=== PATIENT | female | born 1960 | race Caucasian/White ===

== ENCOUNTER 2017-01-03 11:07 | Outpatient (CLI) | payer MEDICAID ==
--- NOTE | 2017-01-03 13:29 | XRAY Report ---
COMPLETE CERVICAL SPINE WITH FLEXION AND EXTENSION: 01/03/2017 CLINICAL INDICATION: Degenerative disk disease, right shoulder pain. COMPARISON: 05/20/2015 FINDINGS: AP, lateral neutral, lateral flexion, lateral extension, oblique, odontoid views of the ce rvical spine were obtained. Degenerative disk and facet disease is again noted, with right worse eusebio n left osseous neural foraminal narrowing. There is no evidence of interval fracture or subluxation. No abnormal motion is seen on flexion or extension to suggest ligamentous laxity. Motion is limite d by degenerative changes. IMPRESSION: DEGENERATIVE DISK AND FACET DISEASE, WITH STABLE OSSEOUS NEURAL FORAMINAL NARROWING. NO EVIDENCE OF INTERVAL FRACTURE. JOB #: [id number] EXT JOB #:[id number]
--- NOTE | 2017-01-03 13:49 | XRAY Report ---
TWO-VIEW RIGHT SHOULDER: 01/03/2017 CLINICAL INDICATION: Pain. FINDINGS: Frontal and scapular Y views of the right shoulder demonstrate mild degenerative changes. There are calcifications in the expected location of the distal supraspinatus tendon, compatible wit h calcific tendinitis. There is no evidence of acute fracture or dislocation. IMPRESSION: DEGENERATIVE CHANGES, WITH LIKELY CALCIFIC TENDINITIS. JOB #: [id number] EXT JOB #:[id number]
== END 2017-01-03 11:08 | disposition home or self-care (01) ==
LOC: DI.S 11:07
PROVIDERS: ATTEND Nurse Practitioner Family
DX: M50.30 Other cervical disc degeneration, unspecified cervical region (principal); M19.011 Primary osteoarthritis, right shoulder; M47.892 Other spondylosis, cervical region; M75.31 Calcific tendinitis of right shoulder
CPT/HCPCS: 72052

== ENCOUNTER 2017-06-09 09:00 | Outpatient (CLI) | payer MEDICAID ==
--- NOTE | 2017-06-09 11:47 | XRAY Report ---
DATE OF SERVICE: 06/09/2017 THORACIC SPINE SERIES: 06/09/2017 COMPARISON: Rib series 12/09/2015. INDICATION: Thoracic back pain. TECHNIQUE: Two views of the thoracic spine. FINDINGS: There is mild to moderate lateral curvature of the thoracic spine. No evidence of acute fracture. No compression deformities. The pedicles appear intact. No appreciable degenerative changes in other regards apart from minimal lateral osteophytes. IMPRESSION: MINIMAL THORACIC SPONDYLOSIS. MILD TO MODERATE LATERAL CURVATURE. TD[facility] 06[facility]09/2017 12:16 [facility]
== END 2017-06-09 09:01 | disposition home or self-care (01) ==
LOC: DI.S 09:00
PROVIDERS: ATTEND Nurse Practitioner Family
DX: M47.894 Other spondylosis, thoracic region (principal); M41.84 Other forms of scoliosis, thoracic region
CPT/HCPCS: 72072

== ENCOUNTER 2018-03-24 11:09 | Emergency (ER) | payer MEDICAID, OTHER ==
--- NOTE | 2018-03-24 12:51 | ED Physician Documentation ---
History of Present Illness - Stated complaint Stated Complaint: LUMP ON NECK - Chief complaint Chief Complaint: General - History obtained from History obtained from: Patient - History of Present Illness Timing: Last night (She noticed a nontender lump in the left supraclavicular area last night. It is unclear how long it had been there. After she noted it she looked around for other swollen areas but did not find any. 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, Breast implants, Other HEENT: Tonsil/Adenoidectomy - Present Medications Home Medications: Ambulatory Orders Medication Instructions Recorded Confirmed Venlafaxine HCl [Effexor Xr] 150 mg PO DAILY 03/24/18 03/24/18 - Allergies Allergies/Adverse Reactions: Allergies Allergy/AdvReac Type Severity Reaction Status Date / Time No Known Drug Allergies Allergy Verified 03/24/18 11:31 - Social History Does the pt smoke?: No Smoking Status: Never smoker Does the pt drink ETOH?: Yes Does the pt have substance abuse?: No - Immunizations Immunizations are current?: Yes PD ED PE NORMAL - Vitals Vital signs reviewed: Yes - General General: Alert and oriented X 3, No acute distress - HEENT HEENT: PERRL, EOMI - Neck Neck: Supple, no meningeal sign, No bony TTP - Cardiac Cardiac: RRR, No murmur - Respiratory Respiratory: No respiratory distress, Clear bilaterally - Abdomen Abdomen: Non tender - Extremities Extremities: Other (In the right mid clavicle area supraclavicular area to medi al to that there is a very large firm lump measuring about 8 x 3 cm consistent with adenopathy.) - Neuro Neuro: Alert and oriented X 3, Normal speech Results - Vitals Vitals: Vital Signs - 24 hr 03/24/18 11:28 Temperature 36.5 C Heart Rate 66 Respiratory 18 Rate Blood Pressure 144/85 H O2 Saturation 99 Oxygen O2 Source Room air - Labs Labs: Laboratory Tests 03/24/18 03/24/18 03/24/18 12:57 12:57 12:57 WBC 4.8 RBC 4.60 Hgb 14.1 Hct 40.9 MCV 88.7 MCH 30.6 MCHC 34.4 RDW 13.6 Plt Count 256 MPV 6.7 L Neut # (Auto) 3.3 Lymph # (Auto) 1.2 L Boyle # (Auto) 0.2 Eos # (Auto) 0.1 Baso # (Auto) 0.0 Absolute Nucleated RBC 0.00 Nucleated RBC % 0.0 Sodium 142 Potassium 3.8 Chloride 105 Carbon Dioxide 29 Anion Gap 8.0 BUN 11 Creatinine 0.6 Estimated GFR (MDRD) 104 Glucose 107 H Calcium 9.4 Total Bilirubin 0.6 AST 21 ALT 14 Alkaline Phosphatase 59 Total Protein 7.3 Albumin 4.5 Globulin 2.8 Albumin/Globulin Ratio 1.6 Lipase 51 TSH 1.30 - Rads (name of study) 2v chest Radiology: EMP read contemporaneously (normal) Sono L neck Radiology: Prelim report reviewed (3 adjacent heterogenous enlarged abnormal lymph nodes.) PD MEDICAL DECISION MAKING - ED course ED course: 57-year-old woman who notes a large left supraclavicular lump which feels like abnormal adenopathy on exam which is confirmed on ultrasound. She will need a biopsy as an oupt. Departure - Departure Disposition: 01 Home, Self Care Clinical Impression: Lymph node enlargement Condition: Good Record reviewed to determine appropriate education?: Yes Follow-Up: Chevy Bender MD [Provider Admit Priv/Credential] - Comments: The lymph node in your neck is concerning for potential lymphoma. You absolutely need to have a biopsy of it. Call Dr. Bender's office listed above on Monday for an appointment. Return for new or worsening symptoms.
[2018-03-24 13:01] LABS: BASOPHILS % (AUTO) 0.8 %; EOSINOPHILS # (AUTO) 0.1 10^3/uL (0.0-0.7); EOSINOPHILS % (AUTO) 1.1 %; HGB - HEMOGLOBIN 14.1 g/dL (12.0-16.0); LYMPHOCYTES # (AUTO) 1.2 10^3/uL (1.5-3.5); LYMPHOCYTES % (AUTO) 23.9 %; MEAN CORPUSCULAR HEMOGLOBIN 30.6 pg (27.0-31.0); MEAN CORPUSCULAR HGB CONC 34.4 g/dL (32.0-36.0); MEAN CORPUSCULAR VOLUME 88.7 fL (81.0-99.0); MEAN PLATELET VOLUME 6.7 fL (7.9-10.8); MONOCYTES # (AUTO) 0.2 10^3/uL (0.0-1.0); MONOCYTES % (AUTO) 4.6 %; NEUTROPHILS # (AUTO) 3.3 10^3/uL (1.5-6.6); NEUTROPHILS % (AUTO) 69.6 %; PLT - PLATELET COUNT 256 10^3/uL (130-450); RED CELL DISTRIBUTION WIDTH 13.6 % (12.0-15.0); WHITE BLOOD COUNT 4.8 x10^3/uL (4.8-10.8)
[2018-03-24 13:17] LABS: ALBUMIN 4.5 g/dL (3.2-5.5); ALBUMIN/GLOBULIN RATIO 1.6 (1.0-2.2); BILIRUBIN,TOTAL 0.6 mg/dL (0.2-1.0); CALCIUM 9.4 mg/dL (8.5-10.3); CREATININE 0.6 mg/dL (0.4-1.0); TOTAL PROTEIN 7.3 g/dL (6.7-8.2)
--- NOTE | 2018-03-24 13:47 | Ultrasound Report ---
Reason: lg left supraclavicular node Procedure Date: 03/24/2018 Accession Number: [id number] / [id number] Procedure: US - Head or Neck Soft Tissue CPT Code: FULL RESULT: EXAM: NECK ULTRASOUND EXAM DATE: 03/24/2018 12:55 PM. CLINICAL HISTORY: Large left supraclavicular node/swelling. COMPARISON: None. TECHNIQUE: Real-time sonographic imaging was performed by the wellfield technician utilizing color-flow. Multiple footwear sales representative static images were saved for review. FINDINGS: Sonographic assessment of the area of concern in the left supraclavicular region demonstrates 3 adjacent or a single lobular heterogeneous mass with marked vascularity. In total size the lobular mass measures 5.4 x 1.9 cm and separately the rounded mass medially measuring 2.4 x 1.7 x 2.2 cm, with the central mass measuring 2.0 x 1.9 x 2.7 cm and the more lateral mass measuring 1.6 x 1.3 x 1.9 cm. Mild adjacent subcutaneous edema. A portion of the visualized portion of left lobe thyroid gland demonstrates at least 2 hypoechoic nodules incompletely visualized. IMPRESSION: 1. Left supraclavicular lobular mass most likely representing 3 adjacent heterogeneous enlarged abnormal lymph nodes rather than a single lobular lymph node. [facility]
--- NOTE | 2018-03-24 13:52 | XRAY Report ---
Reason: supraclavicular adenopathy, eval mediastinum Procedure Date: 03/24/2018 Accession Number: [id number] / [id number] Procedure: XR - Chest 2 View X-Ray CPT Code: 97399 FULL RESULT: EXAM: CHEST RADIOGRAPHY EXAM DATE: 03/24/2018 01:36 PM. CLINICAL HISTORY: Supraclavicular adenopathy, eval mediastinum. COMPARISON: None. TECHNIQUE: 2 views. FINDINGS: Lungs/Pleura: No focal opacities evident. No pleural effusion. No pneumothorax. Normal volumes. Mediastinum: Heart and mediastinal contours are unremarkable. The retrosternal space is unremarkable. IMPRESSION: Normal 2-view chest radiography. [facility]
[2018-03-24 14:12] VITALS: BP 155/96
== END 2018-03-24 14:12 | disposition home or self-care (01) ==
LOC: ED 11:09
DX: R59.0 Localized enlarged lymph nodes (principal)
CPT/HCPCS: 36415; 71046; 76536; 80053; 83690; 84443; 85025; 99283

== ENCOUNTER 2022-03-28 15:07 | Outpatient (CLI) | payer BC ==
--- NOTE | 2022-03-30 09:31 | Mammography Report ---
BILATERAL DIGITAL SCREENING MAMMOGRAM 3D/2D WITH AUGMENTATION: 03/28/2022 CLINICAL: Routine screening. Family history of breast cancer. Comparison is made to exams dated: 12/22/2011 mammogram and 08/25/2009 mammogram - [facility]. Both breasts are heterogeneously dense, which may obscure small masses (category c / 51-75% glandular tissue). Bilateral breast implants are stable and intact. No significant masses, calcifications, or other findings are seen in either breast. There has been no significant interval change. IMPRESSION: NEGATIVE There is no mammographic evidence of malignancy. A 1 year screening mammogram is recommended. This exam was interpreted at Station ID: [id number]. NOTE: For mammograms, a report in lay terms will be sent to the patient. Approximately 15% of breast malignancies will not be visualized mammographically. In the management of a palpable breast mass, a negative mammogram must not discourage biopsy of a clinically suspicious lesion. Electronically Signed By: Ander Daniel M.D. [facility] [place]:03/28/2022 17:07:47 ACR BI-RADS Category 1: Negative 3341F PARENCHYMAL PATTERN: (D) - The breast(s) demonstrate(s) heterogeneously dense fibroglandular galina florian. BI-RADS CATEGORY: (1) - 1 RECOMMENDATION: (ANNUAL) - Recommend routine annual screening mammography. [id number] 1 year screening LATERALITY: (B)
== END 2022-03-28 15:08 | disposition home or self-care (01) ==
LOC: DI.S 15:07
PROVIDERS: ATTEND Registered Nurse
DX: Z12.31 Encounter for screening mammogram for malignant neoplasm of breast (principal); Z80.3 Family history of malignant neoplasm of breast

== ENCOUNTER 2022-12-26 08:00 | Outpatient (CLI) | payer BC ==
--- NOTE | 2022-12-27 11:25 | XRAY Report ---
PROCEDURE: Wrist 3 View LT INDICATIONS: SPRAIN OF LEFT WRIST TECHNIQUE: 3 views of the wrist were acquired. COMPARISON: None. FINDINGS: Bones: No fractures or dislocations. No suspicious bony lesions. Soft tissues: No suspicious soft tissue calcifications or masses. IMPRESSION: No visualized acute fracture or dislocation. However, occult injury cannot be excluded. Recommend noa rt interval imaging follow-up in 7-10 days as clinically indicated for additional evaluation. Reviewed by: Danica Mcallister MD on 12/27/2022 11:23 AM PDT Approved by: Danica Mcallister MD on 12/27/2022 11:23 AM PDT Station ID: [id number]
== END 2022-12-26 23:59 | disposition home or self-care (01) ==
LOC: DI.S 08:00
PROVIDERS: ATTEND Emergency Medicine
DX: S63.512A Sprain of carpal joint of left wrist, initial encounter (principal)